=== PATIENT | female | born 1990 | race Caucasian/White ===

== ENCOUNTER 2017-12-06 18:04 | Inpatient (IN) | payer OTHER, MEDICAID ==
[~2017-12-06 18:04] MED LIST: Bupivacaine PF 0.5% 30 ML VIAL ONE; Lidocaine 2% MPF 10 ML AMP (For Epidural Use) ONE; ePHEDrine/0.9% NaCl/PF SYRINGE 50 mg/10 ml ONE
[2017-12-06 18:33] VITALS: BMI 38.0
[2017-12-06] MEDS ORDERED: LR / Pitocin 40 units/1000 ml 1,000 ML IV PRN (19:09)
[2017-12-06] MEDS ORDERED: Lidocaine 1% (PF) 30 ML VIAL SC PRN (19:09)
[2017-12-06] MEDS ORDERED: HYDROcodone/Acetaminophen 5/325 mg Tablet PO PRN ×2 (19:09)
[2017-12-06] MEDS ORDERED: Ondansetron PF 4 MG/2 ML Vial IVP PRN (19:09)
[2017-12-06] MEDS ORDERED: Ibuprofen 800 MG TAB PO PRN (19:09)
[2017-12-06] MEDS ORDERED: Penicillin G Potassium 5 MILL.UNITS in Sodium Chloride 0.9% 100 ML IVPB SCH (19:30)
[2017-12-06 19:34] LABS: Hemoglobin 11.1 g/dL (12.0-16.0); Mean Corpuscular HGB CONC 35.7 g/dL (32.0-36.0); Mean Corpuscular Hemoglobin 32.2 pg (27.0-31.0); Mean Corpuscular Volume 90.3 fl (81.0-99.0); Mean Platelet Volume 7.1 fL (7.4-10.4); Platelet Count 386 thou/uL (130-400); RBC Distribution Width 11.5 % (11.5-14.5); Red Blood Cell (RBC) Count 3.43 mill/uL (4.20-5.40); White Blood Cell (WBC) Count 19.8 thou/uL (4.8-10.8)
[2017-12-06] MEDS: Lactated Ringer's 1,000 ML IV SCH ×2 (19:45→23:40)
[2017-12-06] MEDS: LR 500 ML/Oxytocin 10 units 500 ML IV SCH (19:45)
[2017-12-06 20:13] LABS: HBSAg Index 0.28 S/CO (0-0.99); Hep B Surf Ag Non-Reactive S/CO (NonReactive); Syphilis Antibody Nonreactive (Nonreactive); Syphilis Antibody Index 0.04 S/CO (<1.00 Non-Reactive)
[2017-12-06] MEDS: Penicillin G 2.5 MILL.units 2.5 MILL.UNITS in Premix Bag 1 BAG IVPB SCH (23:40)
[2017-12-07] MEDS: Penicillin G 2.5 MILL.units 2.5 MILL.UNITS in Premix Bag 1 BAG IVPB SCH ×5 (03:55→20:15)
[2017-12-07] MEDS ORDERED: DISCONTINUE ALL PREVIOUS NARCOTICS FS SCH (07:45)
[2017-12-07] MEDS ORDERED: Bupivacaine 0.5% 20 ML, fentaNYL Citrate/PF 400 MCG in Sodium Chloride 0.9% 72 ML EPIDURAL SCH (07:45)
[2017-12-07] MEDS: Lactated Ringer's 1,000 ML IV SCH ×2 (08:15→10:22)
[2017-12-07] MEDS: Fentanyl 4mcg/Marcaine 0.1% Cassette 100 ML EPIDURAL SCH ×3 (08:35→20:35)
[2017-12-07] MEDS ORDERED: Ondansetron PF 4 MG/2 ML Vial IVP PRN (08:38)
[2017-12-07] MEDS ORDERED: Acetaminophen 325 MG TAB PO PRN (08:38)
[2017-12-07] MEDS ORDERED: diphenhydrAMINE 50 MG/ML VIAL IVP PRN (08:38)
[2017-12-07] MEDS ORDERED: Promethazine HCl 25 MG/ML VIAL IM PRN (08:38)
[2017-12-07] MEDS ORDERED: ePHEDrine/0.9% NaCl/PF SYRINGE 50 mg/10 ml SLOW IVP PRN (08:38)
[2017-12-07] MEDS ORDERED: Naloxone HCl 0.4 mg/ml Vial IVP PRN ×2 (08:38)
[2017-12-07] MEDS ORDERED: Lactated Ringer's 500 ML IV PRN (08:38)
[2017-12-07] MEDS ORDERED: Eucerin (Mineral Oil/Petrolatum,White) 30 gm Jar TOP PRN (08:38)
[2017-12-07] MEDS ORDERED: Communication Order-Pharmacy FS SCH (08:45)
[2017-12-07] MEDS ORDERED: Ondansetron ODT 4 MG TAB PO SCH (10:30)
[2017-12-07] MEDS: LR 500 ML/Oxytocin 10 units 500 ML IV SCH (14:15)
[2017-12-07] MEDS ORDERED: CEFAZOLIN/Water 2 GM/20 ML SYRINGE ONE (21:31)
[2017-12-07] MEDS ORDERED: Bicitra 30 ML UDCUP ONE (21:31)
[2017-12-08] MEDS ORDERED: Morphine PF 1 MG/ML SYR ONE (01:15)
[2017-12-08] MEDS ORDERED: Fentanyl 100 MCG/2 ML VIAL ONE ×3 (01:15→03:18)
--- NOTE | 2017-12-08 01:15 | PDOC.EVN ---
Event Note - Event Note Event Note: @0114: Asked to assist with a section by Dr Lilly. Awaiting CS call. I will be scrubbed in as digital assistant.
[2017-12-08] MEDS ORDERED: ePHEDrine/0.9% NaCl/PF SYRINGE 50 mg/10 ml ONE (01:16)
[2017-12-08] MEDS ORDERED: Ketorolac Tromethamine 30 MG/ML VIAL ONE ×2 (01:16→15:14)
[2017-12-08] MEDS ORDERED: Oxytocin 10 UNITS/ML VIAL ONE ×2 (01:16→03:23)
[2017-12-08] MEDS ORDERED: Lidocaine 2% 10 ML INJ ONE ×2 (01:22→01:25)
[2017-12-08] MEDS ORDERED: CEFAZOLIN/Water 2 GM/20 ML SYRINGE SLOW IVP SCH (01:30)
[2017-12-08] MEDS ORDERED: Bicitra 30 ML UDCUP PO SCH (01:30)
[2017-12-08] MEDS ORDERED: diphenhydrAMINE 50 MG/ML VIAL IVP PRN (02:28)
[2017-12-08] MEDS ORDERED: Naloxone HCl 0.4 mg/ml Vial IVP PRN ×2 (02:28)
[2017-12-08] MEDS ORDERED: Ondansetron HCl/PF 4 MG/2 ML Vial IVP PRN (02:28)
[2017-12-08] MEDS ORDERED: Promethazine HCl 25 MG SUPP PR PRN (02:28)
[2017-12-08] MEDS ORDERED: Ondansetron PF 4 MG/2 ML Vial IVP PRN ×2 (02:28→03:33)
[2017-12-08] MEDS ORDERED: L&D-Morphine 4 MG/ML VIAL SLOW IVP PRN (02:28)
[2017-12-08] MEDS ORDERED: HYDROmorphone 2 MG/ML VIAL SLOW IVP PRN (02:28)
[2017-12-08] MEDS ORDERED: Meperidine HCl/PF 25 MG/ML VIAL SLOW IVP PRN (02:28)
[2017-12-08] MEDS ORDERED: Hydrocerin (Eucerin) Cream 120 gm Jar TOP PRN (02:28)
[2017-12-08] MEDS ORDERED: Naloxone HCl 0.4 mg/ml Vial IV PRN (02:28)
[2017-12-08] MEDS ORDERED: Promethazine HCl 25 MG/ML VIAL IM PRN (02:28)
[2017-12-08] MEDS ORDERED: Communication Order-Pharmacy FS SCH (02:30)
[2017-12-08] MEDS ORDERED: Ketorolac Tromethamine 30 MG/ML VIAL IVP SCH (02:30)
[2017-12-08] MEDS ORDERED: Carboprost 250 MCG/ML AMP ONE (02:34)
[2017-12-08] MEDS ORDERED: PROPOFOL 20 ML ONE (02:45)
--- NOTE | 2017-12-08 03:03 | PDOC.EVN ---
Event Note - Event Note Event Note: 12/08 @ 0300: CS ASSIST NOTE: [facility] Vigorous . No complications. Seprafilm applied per [facility]. Please see full op note.
[2017-12-08] MEDS ORDERED: diphenhydrAMINE 25 MG CAP PO PRN (03:33)
[2017-12-08] MEDS ORDERED: Lanolin Ointment 7 GM TUBE TOP PRN (03:33)
[2017-12-08] MEDS ORDERED: Simethicone Chewable 80 MG TAB PO PRN (03:33)
[2017-12-08] MEDS ORDERED: HYDROcodone/Acetaminophen 5/325 mg Tablet PO PRN ×4 (03:33→14:30)
[2017-12-08] MEDS ORDERED: LR w/ Pitocin 40 units/1000 ML BAG IV SCH (03:45)
[2017-12-08] MEDS ORDERED: Lactated Ringer's 1,000 ML IV SCH (03:45)
[2017-12-08] MEDS ORDERED: Adacel (T-DAP) 0.5 ML VIAL IM ONE (05:00)
[2017-12-08] MEDS: Dextrose 5%-Lactated Ringers 1,000 ML IV SCH ×5 (06:29→21:40)
[2017-12-08] MEDS: Penicillin G 2.5 MILL.units 2.5 MILL.UNITS in Premix Bag 1 BAG IVPB SCH ×7 (06:30→23:00)
[2017-12-08] MEDS: Prenatal Vitamin 1 TAB PO SCH (09:16)
[2017-12-08] MEDS: Docusate Calcium (SURFAK) 240 MG CAP PO SCH ×2 (09:16→21:20)
[2017-12-08] MEDS: Ketorolac Tromethamine 30 MG/ML VIAL IVP PRN ×2 (11:38→22:08)
[2017-12-08] MEDS ORDERED: PROPOFOL 200 MG/20 ML VIAL ONE (15:14)
[2017-12-09] MEDS: Penicillin G 2.5 MILL.units 2.5 MILL.UNITS in Premix Bag 1 BAG IVPB SCH ×3 (03:17→18:35)
[2017-12-09] MEDS: Ketorolac Tromethamine 30 MG/ML VIAL IVP PRN (06:02)
[2017-12-09 06:21] LABS: Hemoglobin 8.1 g/dL (12.0-16.0); Mean Corpuscular HGB CONC 34.7 g/dL (32.0-36.0); Mean Corpuscular Hemoglobin 31.8 pg (27.0-31.0); Mean Corpuscular Volume 91.7 fl (81.0-99.0); Mean Platelet Volume 6.9 fL (7.4-10.4); Platelet Count 305 thou/uL (130-400); RBC Distribution Width 11.5 % (11.5-14.5); Red Blood Cell (RBC) Count 2.54 mill/uL (4.20-5.40); White Blood Cell (WBC) Count 13.5 thou/uL (4.8-10.8)
[2017-12-09] MEDS: Dextrose 5%-Lactated Ringers 1,000 ML IV SCH ×2 (08:59→18:35)
[2017-12-09] MEDS: Docusate Calcium (SURFAK) 240 MG CAP PO SCH ×2 (09:34→21:43)
[2017-12-09] MEDS: Prenatal Vitamin 1 TAB PO SCH (09:34)
[2017-12-09] MEDS: Ibuprofen 800 MG TAB PO SCH ×2 (18:34→21:42)
[2017-12-10] MEDS: Ibuprofen 800 MG TAB PO SCH (06:19)
[2017-12-10] MEDS: Penicillin G 2.5 MILL.units 2.5 MILL.UNITS in Premix Bag 1 BAG IVPB SCH (07:22)
[2017-12-10] MEDS: Dextrose 5%-Lactated Ringers 1,000 ML IV SCH (07:23)
[2017-12-10 08:40] VITALS: TEMP 97.7
[2017-12-10 08:41] VITALS: BP 139/78
[2017-12-10] MEDS: Docusate Calcium (SURFAK) 240 MG CAP PO SCH (09:15)
[2017-12-10] MEDS: Prenatal Vitamin 1 TAB PO SCH (09:15)
--- NOTE | 2017-12-11 11:55 | OP ---
DATE OF ADMISSION: 12/06/2017 ADMITTING DIAGNOSES: 1. This is a 27-year-old G1 with a complaint of spontaneous rupture of membranes, previous to labor at term. 2. Group B streptococcus positive. 3. Arrest of descent with suspected soft tissue dystocia after 2 hours of pushing. PROCEDURE PERFORMED: Primary low transverse section. SURGEON: Zandra Lilly MD TAX ANALYST: Heber Gupta MD ANESTHESIA: Epidural combination. ESTIMATED BLOOD LOSS: 500 mL. CLINICAL HISTORY: This patient is a 27-year-old female who presented the night of 12/07/19 with a history of premature rupture of membranes at approximately 5:35 p.m. The patient was admit ivett and given IV penicillin per protocol for group B Strep positive status. She was also started on Pitocin for an induction of labor at that time per nursing. Her cervical exam was 1 cm thick and pos terior. She continued on the Pitocin for 1-2 hours, then a Ham bulb Cook's catheter was placed. T he patient accommodated that catheter well and by the following morning around 6:00 a.m., the Ham c atheter was then removed. The patient was 4-5 cm; however, was thick and she was continued on Pitoci n. Internal monitors were placed to appropriately monitor the progression of Pitocin with a dilation . The patient had a good contraction pattern with a category 1 tracing with intermittent times of ca tegory 2. Unfortunately, during those times, the Pitocin was turned off and resuscitative maneuvers were performed. However, the patient quickly resolved and the Pitocin was turned back on. Despite a dequate contractions and complete cervical dilation, as well as 2 hours of good maternal effort with pushing, the patient was not able to bring the vertex to a position that was appropriate for an assisted vaginal delivery. The patient was counseled on concerns for labor dystocia and the risks, benefits, and possible complications as well as alternatives were discussed for a primary se ction for arrest of descent. The patient was prepared for the operating room and the surgery ensued as follows. DESCRIPTION OF PROCEDURE: After the patient was re-dosed, she was laid in the supine position. Her Ham was placed to gravity. She was prepped and draped in the usual sterile fashion. A testing of the lower abdomen was performed and the patient was deemed adequate. An incision was then made in th e lower abdomen in a Pfannenstiel manner and this incision was then carried down to the fascia. The fascia was then nicked in the midline and this incision was extended bilaterally. The Efraín clamps were then used x2 to elevate the rectus muscles with a combination of blunt and sharp dissection. Th e Efraín clamps were then released and used on the bottom border to elevate the pyramidalis and rectu s muscles. Once this was completed, the rectus muscles were elevated with 2 mosquito clamps and an i ncision in the midline raphae was made. This was extended upward to reveal the peritoneal cavity, wh ich was breached with a combination of blunt and sharp dissection. Once in the abdominal cavity, the surgeon's hand was placed over the uterus with a sweep to assess for adhesions, none being found. T his incision was carried upwards and downwards to accommodate delivery. The bladder blade was then p laced. A bladder flap was created by using [place] and Metzenbaum scissors reflecting the bladder do wnward. The bladder blade was placed anterior to this bladder flap and the uterine incision was made with the scalpel with small swipes until the amnion was breached. Clear fluid was noted. This inci hailey was then extended with the surgeon's fingers and the surgeon's hand was placed into the uterus. The vertex was lifted to the incision and delivered through. There was a nuchal cord x1, whic h was easily reduced. The anterior shoulders followed by the posterior shoulders, followed by the re mainder of the 's body was delivered. The infant cried spontaneously. The cord was doubly cla mped and cut, and the baby was handed off to the nurses in attendance for the delivery. Aft erwards, the placenta was manually removed. There was a cord blood collected prior to this. The [place] was then exteriorized and the uterine incision was closed with a running locking suture. A secon d imbricating closure was performed with excellent hemostasis. The bladder flap was then reapproxima ivett using a Monocryl suture and then Seprafilm was placed over this incision. The gutters were clean sed of all debris and the uterus was then placed back into the abdomen after acknowledging normal adn exal structures. The peritoneum was then closed, followed by the rectus muscles in an interrupted fi [id number] fashion. The fascia was then closed in a running fashion with noted integrity after th e surgeon ran her finger over the suture line. The subcutaneous tissues were then irrigated copiousl y and bleeding was corrected with Bovie cautery. The subcutaneous tissues were then closed with mult iple interrupted sutures of 2-0 plain, and the skin was then closed in a running fashion with a 4-0 M onocryl with excellent hemostasis. Steri-Strips and Mastisol were placed as well as a pressure dress ing. The patient tolerated the procedure well and was able to be sent into the recovery room in sati sfactory condition with her infant. All needle, sponge, lap, and instrument counts were correct x2 a t the end of the procedure. Her was a liveborn male with Apgars of 9 and 9 at 1 and 5 minutes respectively, weighing 6 pounds 11 ounces. Time of rupture total was 33 hours. There were no other issues surrounding this delivery.
== END 2017-12-10 11:30 | disposition home or self-care (01) | DRG 766 ==
LOC: L&D/OP 18:04 → L&D 23:50 → 3SW 12-08 06:29
PROVIDERS: ADMIT Obstetrics & Gynecology; ATTEND Obstetrics & Gynecology
PROC: 10D00Z1 Extraction of Products of Conception, Low, Open Approach (ICD-10-PCS; principal; 2017-12-08)
DX: O42.90 Premature rupture of membranes, unspecified as to length of time between rupture and onset of labor, unspecified weeks of gestation (principal); O62.0 Primary inadequate contractions; O99.824 Streptococcus B carrier state complicating childbirth; Z37.0 Single live birth; Z3A.38 38 weeks gestation of pregnancy
CPT/HCPCS: 36415; 51702; 85027; 86780; 87340; 99285; C1726; J0595; J1200; J1885; J2001; J2274; J2540; J2590; J2704; J3010; J3490; J7050; J7120; S0020

== ENCOUNTER 2018-07-22 17:01 | Emergency (ER) | payer OTHER ==
[2018-07-22 17:58] LABS: HIV (1/2) Antibody/Antigen Non-Reactive (NonReactive); HIV 1/2 INDEX 0.14 S/CO (<1.00); Hep C IgG Ab Non-Reactive (NonReactive); Hep C Index 0.35 S/CO (0-0.79)
[2018-07-22 19:38] LABS: Hep B Surf AB Reactive (NonReactive)
[2018-07-22 19:40] LABS: HBSAB Concentration 152.77 mIU/mL
== END 2018-07-22 17:15 | disposition home or self-care (01) ==
LOC: ERS 17:01
DX: Z53.21 Procedure and treatment not carried out due to patient leaving prior to being seen by health care provider (principal)
CPT/HCPCS: 86706; 86803; 87389; 99281

== ENCOUNTER 2018-07-22 17:16 | Emergency (ER) | payer OTHER | END 2018-07-22 17:25 | disposition home or self-care (01) | LOC: ERS 17:16 | DX: S61.031A Puncture wound without foreign body of right thumb without damage to nail, initial encounter (principal); F41.9 Anxiety disorder, unspecified; W26.8XXA Contact with other sharp object(s), not elsewhere classified, initial encounter | CPT/HCPCS: 99283 ==

== ENCOUNTER 2022-09-04 14:52 | Outpatient (CLI) | payer BC | END 2022-09-04 14:53 | disposition home or self-care (01) | LOC: DTY/OP 14:52 | PROVIDERS: ATTEND Specialist | DX: E66.01 Morbid (severe) obesity due to excess calories (principal) | CPT/HCPCS: 97802 ==

== ENCOUNTER 2022-12-13 14:02 | Outpatient (CLI) | payer BC ==
[2022-12-13 15:05] LABS: #Basophils 0.1 10x3/uL (0.0-0.2); #Eosinphils 0.1 10x3/uL (0.0-0.5); #Monocytes 0.5 10x3/uL (0.0-1.1); #Neutrophils 5.2 10x3/uL (1.5-8.4); %Basophils 0.8 % (0.0-2.0); %Eosinophils 1.4 % (0.0-6.0); %Lymphocytes 32.1 % (18.0-47.0); %Monocytes 5.7 % (0.0-10.0); %Neutrophils 59.8 % (40.0-75.0); Hemoglobin 12.6 g/dL (12.0-15.5); Mean Corpuscular HGB CONC 34.8 g/dL (32.0-36.0); Mean Corpuscular Hemoglobin 30.4 pg (27.0-33.0); Mean Corpuscular Volume 87.4 fl (81.6-98.3); Mean Platelet Volume 9.6 fl (7.4-10.4); Platelet Count 339 10x3/uL (150-450); RBC Distribution Width 11.9 % (11.5-14.5); Red Blood Cell (RBC) Count 4.14 10x6/uL (3.90-5.03); White Blood Cell (WBC) Count 8.7 10x3/uL (3.5-10.5)
[2022-12-13 15:31] LABS: ALT (SGPT) 22 U/L (8-55); AST (SGOT) 22 U/L (5-34); Albumin 4.1 g/dL (3.5-5.0); Alkaline Phosphatase 71 U/L (40-110); Anion Gap 12 mmol/L (10-20); BUN (Urea Nitrogen) 8 mg/dL (7.0-18.7); Bilirubin, Total 0.8 mg/dL (0.2-1.2); Calc. Creatinine Clearance 0 mL/min (70-130); Calcium 8.8 mg/dL (7.8-10.44); Carbon Dioxide 23 mmol/L (22-29); Chloride 106 mmol/L (98-107); Estimated GFR 103; Globulin 2.6 g/dL (2.4-3.5); Glucose 92 mg/dL (70-105); Potassium 3.8 mmol/L (3.5-5.1); Protein, Total 6.7 g/dL (6.0-8.3); Sodium 137 mmol/L (136-145)
[2022-12-13 15:39] LABS: BHCG - Serum Negative (NEGATIVE); Pregs Control Background? CLEAR/WHITE (CLR/WHITE); Pregs Control Bar Appear? YES (CONTROL BAR)
[2022-12-14 02:19] LABS: Hemoglobin A1c 4.9 % (4.0-6.0)
== END 2022-12-13 14:03 | disposition home or self-care (01) ==
LOC: LABBT 14:02
PROVIDERS: ATTEND Specialist
DX: Z01.818 Encounter for other preprocedural examination (principal); D24.2 Benign neoplasm of left breast; E66.01 Morbid (severe) obesity due to excess calories
CPT/HCPCS: 80053; 83036; 84703; 85025; 93005; 93010